=== PATIENT | male | born 1970 | race Caucasian/White ===

== ENCOUNTER → 2020-07-03 14:31 | Outpatient (CLI) | payer OTHER, SELFPAY ==
--- NOTE | ~2020-07-03 | MR_ITS ---
EXAMINATION: MR knee LT wo con DATE: 07/03/2020 15:14 INDICATION: Left knee pain TECHNIQUE: Magnetic resonance imaging (MRI) of the left knee was performed without intravenous contra st. Sequences included coronal PD-weighted FSE, coronal PD-weighted FS FSE, sagittal T2-weighted FSE , sagittal PD-weighted FS FSE and axial PD weighted fat saturated FSE. COMPARISON: None. FINDINGS: Medial compartment: Medial meniscus is normal. Small region of chondral fissuring with mild underlying cortical irregular ity and subarticular edema at the lateral aspect of the anterior weightbearing medial femoral condyle . Additional chondral fissuring with subarticular edema slightly lateral to the center of the medial tibial plateau. Lateral compartment: Lateral meniscus is normal. Articular cartilage is normal. Patellofemoral compartment: Deep chondral fissuring with tiny focus of subarticular edema at the central aspect of the medial pat ellar facet. Moderate-sized region of trochlear partial thickness chondral ulceration and fissuring w ith prominent subarticular edema centered along the inferior aspect of the trochlear groove. Ligaments and tendons: Anterior and posterior cruciate ligaments are normal. The medial collateral ligament and fibular rocio ateral ligament complex are normal. The extensor mechanism is normal. The visualized medial and later al hamstring tendons as well as the iliotibial band are normal. Fluid: Physiologic amount of fluid in the joint space. No loose osteochondral bodies identified. Osseous/other: Small bone islands at the lateral aspect of the distal femoral diaphysis and posteriorly at the later al tibial plateau. No fracture or pathologic marrow replacing process. IMPRESSION: 1. 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 Reviewed, dictated and finalized at location B. HEEL CEMENTER IMPRESSION: 1. 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
== END ==
PROVIDERS: PCP Internal Medicine; Visit Provider Physician Assistant Medical
DX: M25.562 Pain in left knee (principal); M17.12 Unilateral primary osteoarthritis, left knee
CPT/HCPCS: 73721

== ENCOUNTER → 2020-09-19 15:31 | Outpatient (CLI) | payer BC, OTHER, SELFPAY ==
--- NOTE | ~2020-09-19 | MR_ITS ---
EXAMINATION: MR shoulder RT wo/w con DATE: 09/19/2020 16:26 INDICATION: Psoriatic arthritis with right shoulder pain TECHNIQUE: Magnetic resonance imaging (MRI) of the right shoulder was performed without and with 20 m L Multihance intravenous contrast. Sequences included axial, sagittal and coronal T1-weighted FSE and T2-weighted FS FSE, sagittal PD-weighted FSE, axial T1-weighted FS FSE and postcontrast axial, sagit jer and coronal T1-weighted FS FSE. COMPARISON: None. FINDINGS: Coracoacromial arch: The acromion undersurface is curved in morphology (type II). The coracoacromial ligament is normal. M ild acromioclavicular osteoarthritis. Rotator cuff: Mild tendinopathy of the supraspinatus and anterior most infraspinatus tendon without discrete tear. The teres minor and subscapularis tendons are normal. There is asymmetric moderate atrophy of the ter es minor muscle belly. Remainder of the rotator cuff musculature is normal. Biceps tendon, glenoid labrum and glenohumeral cartilage: Long head of the biceps tendon is normal. Deep chondral ulceration and fissuring along the inferior t hird of the glenoid with underlying tiny degenerative subchondral cyst. Cartilage of the humeral head is relatively preserved. Diffuse circumferential tear of the glenoid labrum. A couple tiny paralabra l cysts at the inferior glenoid, slightly larger 6 x 7 x 5 mm paralabral cyst at the posterior inferi or glenoid and yet larger 2.1 x 0.9 x 0.6 cm para labral cyst at the posterior superior glenoid. The latter extends into the spinal glenoid notch along side but not appearing to significantly compress t he infraspinatus neurovascular bundle. Fluid: Physiologic amount of fluid in the glenohumeral joint and biceps tendon sheath. No loose osteochondra l bodies. Mild increased fluid signal and enhancement in the subacromial/subdeltoid bursa consistent with mild bursitis. Bones: Normal marrow signal with no fracture or pathologic marrow replacing process. IMPRESSION: 1. Diffuse labral tear with paravertebral cyst, the largest at the posterior superior glenoid which e xtends into the spinoglenoid notch along side but not appearing to compress the infraspinatus neurova scular bundle. 2. Mild glenohumeral osteoarthritis with small region of high-grade chondral malacia the inferior gle noid. 3. Mild supraspinatus and infraspinatus tendinopathy without discrete tear. 4. Mild acromioclavicular osteoarthritis with mild underlying subacromial/subdeltoid bursitis. 5. Nonspecific moderate fatty atrophy of the teres minor muscle belly with no evident impinging lesio ns at the quadrilateral space along the course of the axillary nerve. Reviewed, dictated and finalized at location A. IMPRESSION: 1. Diffuse labral tear with paravertebral cyst, the largest at the posterior galeana perior glenoid which extends into the spinoglenoid notch along side but not elizabeth earing to compress the infraspinatus neurovascular bundle. 2. Mild glenohumeral osteoarthritis with small region of high-grade chondral ma lacia the inferior glenoid. 3. Mild supraspinatus and infraspinatus tendinopathy without discrete tear. 4. Mild acromioclavicular osteoarthritis with mild underlying subacromial/subde ltoid bursitis. 5. Nonspecific moderate fatty atrophy of the teres minor muscle belly with no e vident impinging lesions at the quadrilateral space along the course of the axi llary nerve.
[2020-09-19 15:54] LABS: Estimated Glomerular Filt Rate 43
== END ==
DX: L40.50 Arthropathic psoriasis, unspecified (principal); S43.431A Superior glenoid labrum lesion of right shoulder, initial encounter; M19.011 Primary osteoarthritis, right shoulder; M24.111 Other articular cartilage disorders, right shoulder; M75.81 Other shoulder lesions, right shoulder; M75.51 Bursitis of right shoulder; M62.511 Muscle wasting and atrophy, not elsewhere classified, right shoulder
CPT/HCPCS: 73223; A9577